=== PATIENT | male | born 1935 | race Caucasian/White ===

== ENCOUNTER → 2018-07-21 15:21 | Outpatient (POV) | payer SELFPAY | PROVIDERS: Visit Provider Dermatology | DX: Z00.00 Encounter for general adult medical examination without abnormal findings (principal) ==

== ENCOUNTER → 2019-10-12 13:23 | Outpatient (POV) | payer SELFPAY | PROVIDERS: PCP Family Medicine; Visit Provider Dermatology | DX: Z00.00 Encounter for general adult medical examination without abnormal findings (principal) ==

== ENCOUNTER → 2020-01-10 09:34 | Outpatient (CLI) | payer MEDICARE, SELFPAY ==
[2020-01-10 11:13] LABS: Coronavirus 19 IgG Antibody Negative (Negative); Coronavirus 19 IgM Antibody Negative (Negative)
== END ==
PROVIDERS: Visit Provider Ophthalmology
DX: Z01.818 Encounter for other preprocedural examination (principal); Z98.41 Cataract extraction status, right eye
CPT/HCPCS: 36415; 86328

== ENCOUNTER 2020-01-11 07:40 | Day surgery (SDC) | payer MEDICARE, SELFPAY ==
[2020-01-06 12:33] VITALS: BMI 23.9
[2020-01-11] VITALS (7 sets, daily range): BP systolic 116–145; BP diastolic 71–83; PULSE 58–60; RESP 16–18; TEMP 36.1–36.6; O2SAT 96–99
== END 2020-01-11 09:55 | disposition home or self-care (01) ==
LOC: OR 07:42
PROVIDERS: PCP Family Medicine; Visit Provider Ophthalmology
DX: H25.813 Combined forms of age-related cataract, bilateral (principal); H02.839 Dermatochalasis of unspecified eye, unspecified eyelid; E78.5 Hyperlipidemia, unspecified; H91.90 Unspecified hearing loss, unspecified ear; Z80.9 Family history of malignant neoplasm, unspecified; Z83.3 Family history of diabetes mellitus
CPT/HCPCS: 66984; V2632

== ENCOUNTER → 2020-01-24 09:56 | Outpatient (CLI) | payer MEDICARE, SELFPAY ==
[2020-01-24 11:27] LABS: Coronavirus 19 IgG Antibody Negative (Negative); Coronavirus 19 IgM Antibody Negative (Negative)
== END ==
PROVIDERS: Visit Provider Ophthalmology
DX: Z01.818 Encounter for other preprocedural examination (principal); Z98.42 Cataract extraction status, left eye
CPT/HCPCS: 36415; 86328

== ENCOUNTER 2020-01-25 06:47 | Day surgery (SDC) | payer MEDICARE, SELFPAY ==
[2020-01-18 12:29] VITALS: BMI 24.0
[2020-01-25 07:08] VITALS: BP 132/70; PULSE 60; RESP 18; TEMP 36.4; O2SAT 97
[2020-01-25 08:25] VITALS: BP 144/77; PULSE 60; RESP 16; O2SAT 100
[2020-01-25 08:30] VITALS: BP 132/74; PULSE 60; RESP 16; O2SAT 100
[2020-01-25 08:35] VITALS: BP 132/78; PULSE 60; RESP 16; O2SAT 100
[2020-01-25 08:40] VITALS: BP 128/74; PULSE 60; RESP 16; O2SAT 100
[2020-01-25 08:42] VITALS: BP 131/71; PULSE 71; RESP 18; TEMP 36.6; O2SAT 97
== END 2020-01-25 09:00 | disposition home or self-care (01) ==
LOC: OR 06:48
PROVIDERS: PCP Family Medicine; Visit Provider Ophthalmology
DX: H26.9 Unspecified cataract (principal); Z80.9 Family history of malignant neoplasm, unspecified
CPT/HCPCS: 66984; V2632

== ENCOUNTER → 2021-01-16 13:23 | Outpatient (POV) | payer MEDICARE, SELFPAY | PROVIDERS: Visit Provider Dermatology | DX: Z00.00 Encounter for general adult medical examination without abnormal findings (principal) ==

== ENCOUNTER → 2021-01-22 12:47 | Outpatient (CLI) | payer MEDICARE, SELFPAY ==
--- NOTE | 2021-01-22 12:50 | FL_ITS ---
PROCEDURE: FL BARIUM SWALLOW MODIFIED CLINICAL INDICATION: PHARYNGOESOPHAGEAL PHASE DYSPHAGIA COMPARISON: No exams were available for comparison TECHNIQUE: Patient administered varying consistencies of barium contrast, while viewed in lateral position under real-time fluoroscopy with cine recording. FLUOROSCOPY TIME:1.26 minutes The study was performed in conjunction with speech pathologist. Please see that report & recommendations. FINDINGS: Patient was given varying consistencies of barium. No aspiration or penetration. There was a mild amount of residual with all consistencies which cleared with dry swallow. IMPRESSION: Mild residual otherwise unremarkable modified barium swallow. Please see speech pathologist report and recommendations. Dictated by: Shahid Cancino MD 01/22/2021 18:26 Shahid Cancino MD in [place] 01/22/2021 18:26
--- NOTE | 2021-01-22 13:34 | HMH.SLMBS2 ---
Speech & Language Evaluation Speech/Language Mod Barium Swallow Start: 01/22/21 13:25 Freq: once Status: Complete Protocol: Document 01/22/21 13:28 KAVITA (Rec: 01/22/21 13:34 KAVITA [id number]) General Information General Current Food Consistancy Regular,Thin Liquids Dentition Good Dentition Oxygen Status Room Air Facial Symmetry Symmetrical Patient Orientation Person,Place,Time,Situation Ability to Follow Directions Excellent Communication Ability No Impairment MBS Recommendations Diet Dietary Recommendations Regular,Thin Liquids Treatment/Strategies Treatment Recommendation Compens. Strategy Educat. Strategy/Precaution Recommend Double Swallow,Small Bites and Sips,Alternate Liquids/Solids Mod Barium Swallow Impressions Summary and Impressions Oral Phase Impression No Impairment (WFL) Oral Phase Summary Mr. Myers was given the following consistencies: thins via straw and open cup, pudding, mechanical soft, regular, and pill with thin wash. No oral impairments noted during evaluation. Pharyngeal Phase Impression Mild Impairment Pharyngeal Phase Summary Mild impairment noted during evaluation characterized by vallecular, pharyngeal wall, and pyriform sinus residue with all consistencies however cleared with dry swallow. Mr. Myers was educated on the importance of dry swallow, alternating between bite and sip, and small bites and sips during mealtimes. Speech/Language MBS Assessment/Goals/Plan Assessment Date of Evaluation: 01/22/21 Evaluation Type Initial Certification Assessment/Problems Dysphagia Does Patient Qualify for Service No Qualify/Failure Comment Mr. Myers was educated on compensatory strategies and advised if problems continue, therapy would be recommended. Plan Pt/Guardian verbally ack understanding Yes of dx/prognosis/goals G -code Required No Mod Barium Swallow Setup Exam Setup Radiologist Shahid Cancino Level of Consciousness Awake,Alert,Appropriate, Follows Commands Position (degrees) 90 Mod Barium Swallow-Lat View Textures Lateral View Food Presentation T
== END ==
PROVIDERS: PCP Family Medicine; Visit Provider Family Medicine
DX: R13.14 Dysphagia, pharyngoesophageal phase (principal)
CPT/HCPCS: 70371; 92611

== ENCOUNTER 2022-02-23 08:18 | Emergency (ER) | payer MEDICARE, SELFPAY ==
[2022-02-23 08:30] VITALS: BP 141/90; PULSE 88; RESP 19; TEMP 36.8; O2SAT 98; BMI 25.5
--- NOTE | 2022-02-23 08:40 | EXP.UTC ---
Discharge Plan Disposition Patient Disposition: Home, Self-Care Condition: Good Prescriptions Prescriptions: New benzonatate 100 mg capsule 100 mg PO TID PRN (Reason: cough) Qty: 30 0RF amoxicillin-pot clavulanate 875-125 mg Tablet 1 tab PO Q12H Qty: 14 0RF prednisone 10 mg tablet 10 mg PO BID 5 Days Qty: 10 0RF No Action simvastatin 40 MG tablet 40 mg PO DAILY Referrals Follow up/Referrals: Bridget Pa MD [Primary Care Provider] - See instructions Activity Restrictions/Add. Instructions Additional Instructions/Restrictions: *Monitor Temp, Over the counter Motrin or Tylenol as directed/as needed Tylenol every 4 hours and Motrin every 6 hours (as long as your family doctor has told you that you can take it) for fever or pain. and straight to ER if unable to lower temp less than 101.0 after medication given *Warm salt water gargles may help to soothe the throat *Throat Lozenges? *Warm fluids like tea with honey may help to soothe the throat? *Sleep elevated *Humidifier/Vaporizer Follow up IMMEDIATELY for new or worsening symptoms or no Noticeable improvement over the next 48-72 hours. 911 for difficulty breathing or swallowing Clinical Impressions Clinical Impression: Sinusitis Instructions Patient Instructions: DI for Sinusitis, Sinusitis Discharge ED Provider: Erin Byrne [facility] – [place], [place] HPI General Stated complaint: congestion, sore throat Mode of Arrival: Ambulatory Source of Information: Patient Limitations: No Limitations Time Seen by Provider: 02/23/22 08:40 Description of Symptoms (Recalled from Triage Doc. by RN): PATIENT C/O COUGH, CONGESTION, AND SORE THROAT SINCE FRIDAY HEENT Symptoms (Recalled from RN notes): Yes Resp Symptoms (Recalled from RN notes): Yes Skin Symptoms (Recalled from RN notes): No MS Symptoms (Recalled from RN notes): No Functional Status (Recalled from RN notes): WNL History of Present Illness Provider Complaint: Patient states that he has been having sinus pain and pressure for over a week States that he then started on with sore throat, worsening of pressure and cough States that he gets a sinus infection like this about once a year and has to get steriods to help it Related Data Home Medications Medication Instructions Recorded Confirmed simvastatin 40 mg tablet 40 mg PO DAILY Cholesterol 01/06/20 01/06/20 Previous Rx's Medication Instructions Recorded amoxicillin 875 mg-potassium 1 tab PO Q12H #14 tabs 02/23/22 clavulanate 125 mg tablet benzonatate 100 mg capsule 100 mg PO TID PRN cough #30 caps 02/23/22 prednisone 10 mg tablet 10 mg PO BID 5 days #10 tabs 02/23/22 Allergies Allergy/AdvReac Type Severity Reaction Status Date / Time No Known Allergies Allergy Verified 01/18/20 12:28 Worker's Comp Is this a Worker's Comp case?: No [facility] Disclaimer: The information contained in this section may have been updated after the patient was seen, as this information can be updated by other users. Medical History (Updated 02/23/22 @ 08:46 by Erin Byrne APRN) Hyperlipidemia Surgical History (Updated 02/23/22 @ 08:38 by Qi Castle RN) History of appendectomy History of cholecystectomy History of tonsillectomy Social History (Updated 02/23/22 @ 08:38 by Qi Castle RN) Smoking Status: Unknown if ever smoked alcohol intake: never current occupational status: retired Travel in the last 8 weeks: None household members: spouse housing: house caffeine: Yes ROS Obtained: Yes All systems reviewed & no additional complaints except as documented and Yes Systems reviewed as appropriate & no additional complaints except as documented Constitutional Constitutional: Reports system reviewed and no additional complaints, except as documented and Reports as per HPI ENT Ears, Nose, Mouth, and Throat: Reports system reviewed and no additional complaints, except as do
[2022-02-23 08:46] VITALS: BP 141/90; PULSE 88; RESP 19; TEMP 36.8; O2SAT 98
== END 2022-02-23 08:50 | disposition home or self-care (01) ==
PROVIDERS: Emergency Provider Nurse Practitioner; PCP Family Medicine
DX: J32.9 Chronic sinusitis, unspecified (principal)
CPT/HCPCS: 99212; G0463

== ENCOUNTER 2022-04-15 10:47 | Emergency (ER) | payer MEDICARE, SELFPAY ==
[2022-04-15 10:56] VITALS: BP 154/91; PULSE 83; RESP 18; O2SAT 94; BMI 25.5
[2022-04-15 11:45] VITALS: BP 154/91; PULSE 83; RESP 18; TEMP 37; O2SAT 94; BMI 25.4
--- NOTE | 2022-04-15 12:12 | EXP.UTC ---
Discharge Plan Disposition Patient Disposition: Home, Self-Care Condition: Good Prescriptions Prescriptions: No Action simvastatin 40 MG tablet 40 mg PO DAILY benzonatate 100 mg capsule 100 mg PO TID PRN (Reason: cough) Qty: 30 0RF amoxicillin-pot clavulanate 875-125 mg Tablet 1 tab PO Q12H Qty: 14 0RF prednisone 10 mg tablet 10 mg PO BID 5 Days Qty: 10 0RF Referrals Follow up/Referrals: Bridget Pa MD [Primary Care Provider] - See instructions Activity Restrictions/Add. Instructions Additional Instructions/Restrictions: Keep area clean and dry Allow dermabond and steri strips to wear off Watch for signs of infection such as but not limited too redness, drainage and streaks Follow up with your Family Doctor immediately if any signs of infection Return if needed Straight to ER if any life threatening symptoms Clinical Impressions Clinical Impression: Skin tear Instructions Patient Instructions: DI for Laceration Repair-Skin Glue, DI for Abrasion Discharge ED Provider: Erin Byrne [facility] [place] HPI General Stated complaint: [email or web address] 04/15 LT elbow pain Mode of Arrival: Ambulatory Source of Information: Patient and Spouse Limitations: No Limitations Time Seen by Provider: 04/15/22 12:12 Description of Symptoms (Recalled from Triage Doc. by RN): PATIENT C/O SKIN TEAR TO LEFT ELBOW AFTER HITTING IT ON A LADDER HEENT Symptoms (Recalled from RN notes): No Resp Symptoms (Recalled from RN notes): No Skin Symptoms (Recalled from RN notes): Yes MS Symptoms (Recalled from RN notes): No Functional Status (Recalled from RN notes): WNL History of Present Illness Provider Complaint: Patient states that he has a skin tear on left elbow after he loss his balance and fell into ladder and hit his elbow on the ladder States that he does want an xray just wanted to have it checked Related Data Home Medications Medication Instructions Recorded Confirmed simvastatin 40 mg tablet 40 mg PO DAILY Cholesterol 01/06/20 01/06/20 Previous Rx's Medication Instructions Recorded amoxicillin 875 mg-potassium 1 tab PO Q12H #14 tabs 02/23/22 clavulanate 125 mg tablet benzonatate 100 mg capsule 100 mg PO TID PRN cough #30 caps 02/23/22 prednisone 10 mg tablet 10 mg PO BID 5 days #10 tabs 02/23/22 Allergies Allergy/AdvReac Type Severity Reaction Status Date / Time No Known Allergies Allergy Verified 01/18/20 12:28 Worker's Comp Is this a Worker's Comp case?: No [facility] Disclaimer: The information contained in this section may have been updated after the patient was seen, as this information can be updated by other users. Medical History (Updated 04/15/22 @ 12:33 by Erin Byrne APRN) Hyperlipidemia Surgical History History of appendectomy History of cholecystectomy History of tonsillectomy Social History (Updated 02/23/22 @ 08:38 by Qi Castle RN) Smoking Status: Unknown if ever smoked alcohol intake: never current occupational status: retired Travel in the last 8 weeks: None household members: spouse housing: house caffeine: Yes ROS Obtained: Yes All systems reviewed & no additional complaints except as documented and Yes Systems reviewed as appropriate & no additional complaints except as documented Constitutional Constitutional: Reports system reviewed and no additional complaints, except as documented and Reports as per HPI ENT Ears, Nose, Mouth, and Throat: Reports system reviewed and no additional complaints, except as documented and Reports as per HPI Cardiovascular Cardiovascular: Reports system reviewed and no additional complaints, except as documented and Reports as per HPI Respiratory Respiratory: Reports system reviewed and no additional complaints, except as documented and Reports as per HPI Gastrointestinal Gastrointestingal: Reports system reviewed and no additional complaints, except as
[2022-04-15 12:35] VITALS: BP 154/91; PULSE 83; RESP 18; TEMP 37; O2SAT 94
== END 2022-04-15 12:42 | disposition home or self-care (01) ==
PROVIDERS: Emergency Provider Nurse Practitioner; PCP Family Medicine
DX: S51.012A Laceration without foreign body of left elbow, initial encounter (principal); W22.8XXA Striking against or struck by other objects, initial encounter; Y92.22 Religious institution as the place of occurrence of the external cause; Z23 Encounter for immunization
CPT/HCPCS: 90471; 90715; 99212; 99213; G0463

== ENCOUNTER → 2022-07-30 13:36 | Outpatient (POV) | payer MEDICARE, SELFPAY | PROVIDERS: Visit Provider Dermatology | DX: Z00.00 Encounter for general adult medical examination without abnormal findings (principal) ==

== ENCOUNTER 2023-01-11 08:11 | Emergency (ER) | payer MEDICARE, SELFPAY ==
[2023-01-11 08:25] VITALS: BP 128/87; PULSE 66; RESP 18; TEMP 36.6; O2SAT 100; BMI 25.8
--- NOTE | 2023-01-11 08:46 | EXP.UTC ---
Discharge Plan Disposition Patient Disposition: Home, Self-Care Condition: Good Prescriptions Prescriptions: New cephalexin 500 mg capsule 500 mg PO QID 7 Days Qty: 28 0RF mupirocin 2 % ointment 1 applic topical TID 10 Days Qty: 22 0RF Rx Instructions: apply directly to wound No Action simvastatin 40 MG tablet 40 mg PO DAILY Referrals Follow up/Referrals: Bridget Pa MD [Primary Care Provider] - See instructions Activity Restrictions/Add. Instructions Additional Instructions/Restrictions: Keep puncture wound clean and dry Watch for worsening signs of infection and if any worsening of swelling and redness or streaks noted follow up immediately Follow up with your Family Doctor next week to go over Culture results that was obtained in the [facility] today Return if needed Straight to ER if any worsening of swelling or worsening of symptoms Clinical Impressions Clinical Impression: Finger infection Instructions Patient Instructions: DI for Puncture Wound, Cephalexin, Mupirocin Discharge ED Provider[place] [facility] [place] General Stated complaint: possible infection on Rt index finger Mode of Arrival: Ambulatory Source of Information: Patient Limitations: No Limitations Time Seen by Provider: 01/11/23 08:47 Description of Symptoms (Recalled from Triage Doc. by RN): PATIENT C/O POSSIBLE INFECTION TO RIGHT INDEX FINGER AFTER GETTING STUCK WITH A THORN APPROX 1 WEEK AGO HEENT Symptoms (Recalled from RN notes): No Resp Symptoms (Recalled from RN notes): No Skin Symptoms (Recalled from RN notes): Yes MS Symptoms (Recalled from RN notes): No Functional Status (Recalled from RN notes): WNL History of Present Illness Provider Complaint: Patient states that a thorn stuck into his right index finger last week States that it came out but he has been having pain in his index finger and thinks he may have an infection pocket and it is sore to the touch thinks he may need some antibiotics Related Data Home Medications Medication Instructions Recorded Confirmed simvastatin 40 mg tablet 40 mg PO DAILY Cholesterol 01/06/20 01/11/23 Previous Rx's Medication Instructions Recorded cephalexin 500 mg capsule 500 mg PO QID 7 days #28 caps 01/11/23 mupirocin 2 % topical ointment 1 applic topical TID 10 days #22 01/11/23 grams Allergies Allergy/AdvReac Type Severity Reaction Status Date / Time No Known Allergies Allergy Verified 01/18/20 12:28 Worker's Comp Is this a Worker's Comp case?: No [facility] Disclaimer: The information contained in this section may have been updated after the patient was seen, as this information can be updated by other users. Medical History (Updated 01/11/23 @ 09:04 by Erin Byrne APRN) Hyperlipidemia Surgical History History of appendectomy History of cholecystectomy History of tonsillectomy Social History (Updated 02/23/22 @ 08:38 by Qi Castle RN) Smoking Status: Unknown if ever smoked alcohol intake: never current occupational status: retired Travel in the last 8 weeks: None household members: spouse housing: house caffeine: Yes ROS Obtained: Yes All systems reviewed & no additional complaints except as documented and Yes Systems reviewed as appropriate & no additional complaints except as documented Constitutional Constitutional: Reports system reviewed and no additional complaints, except as documented and Reports as per HPI ENT Ears, Nose, Mouth, and Throat: Reports system reviewed and no additional complaints, except as documented and Reports as per HPI Cardiovascular Cardiovascular: Reports system reviewed and no additional complaints, except as documented and Reports as per HPI Respiratory Respiratory: Reports system reviewed and no additional complaints, except as documented and Reports as per HPI Gastrointestinal Gastrointestingal: Reports system review
[2023-01-11 08:54] VITALS: BP 128/87; PULSE 66; RESP 18; TEMP 36.6; O2SAT 100
== END 2023-01-11 09:08 | disposition home or self-care (01) ==
PROVIDERS: Emergency Provider Nurse Practitioner; PCP Family Medicine
DX: L03.011 Cellulitis of right finger (principal); B95.7 Other staphylococcus as the cause of diseases classified elsewhere; E78.5 Hyperlipidemia, unspecified; W60.XXXA Contact with nonvenomous plant thorns and spines and sharp leaves, initial encounter
CPT/HCPCS: 87070; 87205; 99212; 99214; G0463

== ENCOUNTER 2023-03-06 08:00 | Emergency (ER) | payer MEDICARE, SELFPAY ==
[2023-03-06 08:10] VITALS: BP 140/77; PULSE 72; RESP 18; TEMP 36.8; O2SAT 95; BMI 25.8
--- NOTE | 2023-03-06 08:21 | EXP.UTC ---
Discharge Plan Disposition Patient Disposition: Home, Self-Care Condition: Good Prescriptions Prescriptions: New amoxicillin [amoxicillin] 875 mg tablet 875 mg PO Q12H Qty: 20 0RF benzonatate [benzonatate] 100 mg capsule 100 mg PO TIDP PRN (Reason: Cough) Qty: 30 0RF methylprednisolone 4 mg Tablets,Dose Pack 4 mg PO DIRECTED 6 Days Qty: 21 0RF Rx Instructions: Take 1 pack as directed for 6 days No Action simvastatin 40 MG tablet 40 mg PO DAILY Referrals Follow up/Referrals: Bridget Pa MD [Primary Care Provider] - See instructions Activity Restrictions/Add. Instructions Additional Instructions/Restrictions: Drink plenty of fluids. Take tylenol or ibuprofen for pain or fever. Take the medications as directed. Follow up with your regular doctor. GO TO THE ER FOR ANY WORSENING SYMPTOMS Clinical Impressions Clinical Impression: Sinusitis, Acute viral syndrome Instructions Patient Instructions: Sinusitis, DI for Sinusitis, DI for Viral Syndrome Discharge ED Provider: Sohail Oliver [facility] General Stated complaint: sinus drainage, sore throat, fever 102, cough Time Seen by Provider: 03/06/23 08:21 History of Present Illness Provider Complaint: He states that he has had sinus congestion and runny nose for the past 3 days. Related Data Home Medications Medication Instructions Recorded Confirmed simvastatin 40 mg tablet 40 mg PO DAILY Cholesterol 01/06/20 03/06/23 Previous Rx's Medication Instructions Recorded amoxicillin 875 mg tablet 875 mg PO Q12H #20 tabs 03/06/23 benzonatate 100 mg capsule 100 mg PO TIDP PRN Cough #30 caps 03/06/23 methylprednisolone 4 mg tablets in 4 mg PO DIRECTED 6 days #21 tabs 03/06/23 a dose pack Allergies Allergy/AdvReac Type Severity Reaction Status Date / Time No Known Allergies Allergy Verified 03/06/23 08:27 [facility] Disclaimer: The information contained in this section may have been updated after the patient was seen, as this information can be updated by other users. Medical History (Updated 03/06/23 @ 08:44 by Sohail Oliver APRN) Hyperlipidemia Surgical History History of appendectomy History of cholecystectomy History of tonsillectomy Social History Smoking Status: Unknown if ever smoked alcohol intake: never current occupational status: retired Travel in the last 8 weeks: None household members: spouse housing: house caffeine: Yes ROS Obtained: Yes All systems reviewed & no additional complaints except as documented Constitutional Constitutional: Reports poor appetite Eyes Eyes: Reports system reviewed and no additional complaints, except as documented ENT Ears, Nose, Mouth, and Throat: Reports as per HPI Cardiovascular Cardiovascular: Reports system reviewed and no additional complaints, except as documented and Denies chest pain Respiratory Respiratory: Denies shortness of breath, Reports chest congestion, Reports cough, Denies stridor and Denies wheezing Gastrointestinal Gastrointestingal: Reports system reviewed and no additional complaints, except as documented; Denies abdominal pain, diarrhea or vomiting Musculoskeletal Musculoskeletal: Reports system reviewed and no additional complaints, except as documented and Denies arthralgias Integumentary/Breasts Skin/Breast: Reports system reviewed and no additional complaints, except as documented and Denies rash Neurologic Neurologic: Denies paresthesias Allergic/Immunologic Allergic/Immunologic: Denies wheezing Physical Exam General General appearance: alert and in no apparent distress Eye Eye exam: Present normal appearance, PERRL and EOMI ENT ENT exam: Present mucous membranes moist and normal external ear exam Expanded ENT Exam External ear exam: Present normal external inspection TM/Canal exam: Bilateral TM: erythema and bulging Nose exam: Absent sinus tenderness Nasal speculum exam: Bilateral: normal Mouth exam: Present normal external inspection; Absent drooling Teeth exam: Present normal inspection Throat exam: Present tonsillar erythema and tonsillomegaly Neck Neck exam: Present normal inspection, full ROM and trachea midline; Absent tenderness, lymphadenopathy or thyromegaly Chest Chest inspection: Present normal inspection and symmetric chest wall rise; Absent tenderness or rash Respiratory Respiratory exam: Present normal lung sounds bilaterally; Absent respiratory distress, wheezes, stridor or accessory muscle use Cardiovascular Cardiovascular exam: Present regular rate, normal rhythm and normal heart sounds Abdominal Exam Abdominal exam: Present soft; Absent distention, tenderness, guarding, rebound or rigidity Extremities Exam Extremities exam: Present normal inspection, full ROM and normal capillary refill; Absent tenderness or calf tenderness Back Exam Back exam: Present normal inspection and full ROM; Absent tenderness Neurological Exam Neurological exam: Present alert and oriented X3 Psychiatric Psychiatric exam: Present normal affect and normal mood Skin Skin exam: Present warm, dry, intact and normal color Lymphatic Lymphatic Findings: no adenopathy Medical Decision Making Medical Records Medical records reviewed: No I reviewed the patient's medical records. Donn Inquiry Pt receiving controlled substance: No
[2023-03-06 08:29] LABS: UTC Strep Screen (Rapid) Negative (Negative)
[2023-03-06 08:30] LABS: UTC Influenza A Antigen Negative (Negative)
[2023-03-06 08:31] LABS: UTC Influenza B Antigen Negative (Negative)
[2023-03-06 08:51] VITALS: BP 140/77; PULSE 72; RESP 18; TEMP 36.8; O2SAT 95
[2023-03-06 09:02] LABS: Adenovirus,PCR Not Detected (NotDetected); Coronavirus 19, PCR Not Detected (NotDetected); Coronavirus 229E Not Detected (NotDetected); Coronavirus NL63 Not Detected (NotDetected); Coronavirus OC43 Not Detected (NotDetected); Coronovirus HKU1,PCR Not Detected (NotDetected); Human Metapneumovirus Not Detected (NotDetected); Influenza A, PCR Not Detected (NotDetected); Influenza AH1, 2009 Not Detected (NotDetected); Influenza AH1, PCR Not Detected (NotDetected); Influenza AH3,PCR Not Detected (NotDetected); Influenza B, PCR Not Detected (NotDetected); Parainfluenza 1, PCR Not Detected (NotDetected); Parainfluenza 2, PCR Not Detected (NotDetected); Parainfluenza 3, PCR Not Detected (NotDetected); Parainfluenza 4, PCR Not Detected (NotDetected); Respiratory Syncytial Virus Not Detected (NotDetected); Rhinovirus/Enterovirus Not Detected (NotDetected)
== END 2023-03-06 08:51 | disposition home or self-care (01) ==
PROVIDERS: Emergency Provider Nurse Practitioner Family; PCP Family Medicine
DX: J01.90 Acute sinusitis, unspecified (principal); R50.9 Fever, unspecified; R07.0 Pain in throat; R05.9 Cough, unspecified; R09.81 Nasal congestion; E78.5 Hyperlipidemia, unspecified
CPT/HCPCS: 87632; 87635; 87804; 87880; 99212; 99214; G0463

== ENCOUNTER 2024-05-03 07:38 | Outpatient (CLI) | payer MEDICARE, SELFPAY ==
--- NOTE | 2024-05-03 | CA_ITS ---
APPROVED REPORT EXAM: Comprehensive 2D, Doppler, and color-flow Echocardiogram Keno Manager: Jenna Bond CRT Ht: 5 ft 8 in Wt: 168lbs BSA: 1.90 BP: 128/74 mmHg Indications: Fatigue, Hyperlipidemia, pacer 2013, complete AV block 2D Dimensions LA Volume 26.50 mL LA Volume Index 13.70 mL/m2 (M/F) 16-34 M-Mode Dimensions RVDd 3.07 cm (0.9-2.6) LA Diam 3.68 cm (1.9-4.0) LVDd 4.25 cm (3.5-5.7) LVDs 3.34 cm (3.5-5.7) IVSd 2.01 cm (0.6-1.1) PWd 0.76 cm (0.6-1.1) EF (Teich) 43.80% FS 21.40% EDV (Teich) 80.80 mL TAPSE 2.02 (<1.7) ESV (Teich) 45.40 mL LV Diastology E Decel Time 313 (160-240 msec) E/A Ratio 0.64 MED A' 10.70 cm/s LAT A' 11.60 cm/s Aortic Valve AI PHT 664.00 ms AO Peak GR. 3.90 mmHg Mitral Valve MV E Max Curtis. 44.0 (40-130 cm/s) MV A Velocity 69.0 (40-130 cm/s) E/A Ratio 0.64 MV PHT 92.0 ms Pulmonary Valve PV Peak Velocity 147.0 (50-150 cm/s) Tricuspid Valve TR P. Velocity 298.00 cm/s RAP Estimate 10.00 mmHg RVSP 45.50 mmHg Left Ventricle The left ventricle is normal size. The left ventricular systolic function is normal. The left ventricular ejection fraction is within the normal range. There is increased LV wall thickness. There is normal LV segmental wall motion. The left ventricular diastolic function is normal. LVEF is 60%. Right Ventricle The right ventricle is normal size. The right ventricular systolic function is normal. Atria The left atrium size is normal. The right atrium size is normal. There is no Doppler evidence of interatrial shunt. Aortic Valve Aortic valve is mildly thickened. There is no aortic valvular stenosis. Mild aortic regurgitation. Mitral Valve The mitral valve is normal in structure. No evidence of mitral valve stenosis. Trace mitral regurgitation. Tricuspid Valve Tricuspid valve is grossly normal in structure and function. Trace tricuspid regurgitation. There is insufficient TR jet to estimate RVSP. Pulmonic Valve The pulmonary valve is normal in structure. Trace pulmonic regurgitation. Great Vessels The aortic root is normal in size. IVC is normal in size and collapses >50% with inspiration. Pericardium There is no pericardial effusion. Other Information Study Quality: Adequate Conclusion Normal biventricular systolic function. Mild AI. Electronically signed by : Terri Vicente MD 05/11/2024 10:19:44
== END 2024-05-03 23:59 | disposition home or self-care (01) ==
LOC: RT 07:38
PROVIDERS: PCP Family Medicine; Visit Provider Physician Assistant
DX: I44.2 Atrioventricular block, complete (principal); Z95.0 Presence of cardiac pacemaker; I35.1 Nonrheumatic aortic (valve) insufficiency; R53.83 Other fatigue
CPT/HCPCS: 93306